=== PATIENT | female | born 1955 | race Caucasian/White ===

== ENCOUNTER 2018-09-25 06:53 | Day surgery (SDC) | payer BC ==
[~2018-09-25] VITALS: Ht 162.6 cm; Wt 112.5 kg
[~2018-09-25 06:53] MED LIST: COZAAR50 MG PO; MAXZIDE 75/501 TAB PO; ZANTAC300 MG PO
[2018-09-25 07:19] LABS: BASOPHILS 0.3 % (0-2); EOSINOPHILS 3.3 % (0-7); HEMATOCRIT 41.4 % (36.0-48.0); HEMOGLOBIN 13.7 g/dL (12-16); IMMATURE GRANULOCYTES 0.3 % (0-5); LYMPHOCYTES 33.3 % (15-50); MCH 29.6 pg (26.0-34.0); MCHC 33.1 g/dL (31.0-37.0); MCV 89.4 fL (80.0-100.0); MEAN PLATELET VOLUME 9.3 fL (7.4-10.4); MONOCYTES 12.3 % (2-11); NEUTROPHILS 50.5 % (40-80); PLATELET COUNT 381 10x3/uL (130-400); RBC 4.63 10x6/uL (4.00-5.40); RDW 13.7 % (11.5-14.5)
[2018-09-25 07:34] LABS: ANION GAP 14.7 mmol/L (8-16); CALCIUM 9.3 mg/dL (8.5-10.1); CARBON DIOXIDE 27.1 mmol/L (21.0-32.0); CREATININE - SERUM 0.9 mg/dL (0.6-1.3); POTASSIUM - SERUM 3.8 mmol/L (3.5-5.1)
[2018-09-25] MEDS ORDERED: ZOLOFT50 MG PO (08:18)
[2018-09-25] MEDS ORDERED: BAYER CHEWABLE81 MG PO (08:19)
[2018-09-25] MEDS ORDERED: MUCINEX600 MG PO (08:28)
[2018-09-25 08:46] VITALS: BP 117/71; Ht 162.6 cm; Wt 112.5 kg
[2018-09-25] MEDS ORDERED: POTASSIUM99 M1 PO (08:58)
[2018-09-25] MEDS ORDERED: HYDROCODON-ACE1 EA10 PO (10:56)
--- NOTE | 2018-10-23 09:41 | OP ---
PATIENT NAME: PEGGY TREVINO MEDICAL RECORD: [id number] :53 LOCATION:[facility] ADMISSION DATE: SURGEON: BOB STUBBS MD DATE OF OPERATION: 09/25/2018 PREOPERATIVE DIAGNOSES: 1. Gallstones. 2. Hypertension. 3. Gastroesophageal reflux disease. POSTOPERATIVE DIAGNOSES: 1. Gallstones. 2. Hypertension. 3. Gastroesophageal reflux disease. PROCEDURE: Laparoscopic cholecystectomy. SURGEON: Bob Stubbs MD REPORT OF PROCEDURE: The patient's abdomen was prepped and draped in sterile fashion. A cutdown was made on the superior aspect of the umbilicus, 0 Vicryls were placed in the fascia bilaterally and the fascia was incised with a 15-blade. I then bluntly entered the peritoneal cavity and placed a 12-mm Adriana port. Under direct visualization, a 5-mm trocar was placed in the epigastrium and two more 5-mm trocars were placed in the right subcostal region. The gallbladder was grasped and elevated. There was no sign of any inflammatory changes. The cystic artery and cystic duct were dissected free and these were clipped proximally and distally and ligated in standard fashion. The gallbladder was taken off the liver bed using electrocautery and placed into the right upper quadrant. Any bleeding from the liver bed was then treated with electrocautery. At this point, the ports and insufflation were then removed and the gallbladder was taken out through the umbilicus. The umbilical fascia was closed with interrupted 0 Vicryls times 3. The wounds were then irrigated out with normal saline and infused with 10 mL of 0.25% Marcaine with epinephrine. The skin incisions were all closed with subcutaneous 5-0 Monocryl and dressed appropriately. COMPLICATIONS: None. CONDITION: Stable. ANESTHESIA: General endotracheal and local. BLOOD LOSS: Minimal. TRANSINT:[id number] Voice Confirmation ID: [id number] DOCUMENT ID: [id number] OPERATIVE REPORT [id number] PEGGY TREVINO BOB ENRIQUEZ MD at 0941 CC: FRANCHESKA WAN MD [id number] DICTATION DATE: 09/25/18 1051 TECHNOLOGY ANALYST: 09/25/18 1112 [facility] 09/25/18 [place] [address]
== END 2018-09-25 11:25 | disposition home or self-care (01) ==
LOC: D.OPS 06:53 → D.PAN 09:15 → D.OPS 11:25
PROVIDERS: Surgery
DX: K80.10 Calculus of gallbladder with chronic cholecystitis without obstruction (principal); I10 Essential (primary) hypertension; K21.9 Gastro-esophageal reflux disease without esophagitis; Z01.812 Encounter for preprocedural laboratory examination